=== PATIENT | male | born 1955 | race Caucasian/White ===

== ENCOUNTER → 2017-01-27 13:41 | Outpatient (CLI) | payer MEDICARE, OTHER ==
[2015-09-29 06:58] VITALS: BMI 27.2
[~2017-01-27 13:41] MED LIST: ACIPHEX20 MG PO; ANASTROZOLE1 MG PO; ASPIRIN EC81 M1 PO; BUSPAR 15 MG TA15 MG PO; HYDROCODONE-APA1 TAB PO; KLONOPIN1 MG PO; LIPITOR40 MG PO; MIDODRINE HCL5 MG PO; MORPHINE IMMEDI30 M1 PO; MORPHINE SULFAT60 M5 PO; PAXIL20 MG PO; PERCOCET 10/3251 TA1 PO; REMERON45 MG PO; SYNTHROID25 MCG PO; TESTOSTERON200 MG/ML IM; VIBRYD PO; ZANAFLEX6 MG PO; ZETIA10 MG PO
== END | disposition home or self-care (01) ==
LOC: D.CT 13:41
DX: R10.9 Unspecified abdominal pain (principal)

== ENCOUNTER → 2017-02-08 07:36 | Outpatient (CLI) | payer MEDICARE, OTHER ==
[2015-09-29 06:58] VITALS: BMI 27.2
== END | disposition home or self-care (01) ==
LOC: D.NM 02-07 09:00
DX: R10.9 Unspecified abdominal pain (principal); K82.9 Disease of gallbladder, unspecified

== ENCOUNTER 2017-03-04 06:35 | Day surgery (SDC) | payer MEDICARE, OTHER ==
[2017-03-03 14:33] LABS: BASOPHILS 0.5 % (0.0-2.0); EOSINOPHILS 2.7 % (0-7); HEMATOCRIT 39.6 % (42.0-54.0); HEMOGLOBIN 13.4 g/dL (13.5-17.5); IMMATURE GRANULOCYTES 0.2 % (0-5); MCH 31.1 pg (26.0-34.0); MCHC 33.8 g/dL (31.0-37.0); MCV 91.9 fL (80.0-100.0); MEAN PLATELET VOLUME 10.1 fL (7.4-10.4); MONOCYTES 9.2 % (2-11); NEUTROPHILS 45.4 % (40-80); PLATELET COUNT 299 10x3/uL (130-400); RBC 4.31 10x6/uL (4.20-6.10); RDW 12.4 % (11.5-14.5); WBC 6.2 10x3/uL (4.8-10.8)
[2017-03-03 14:41] LABS: CALC OSMOLALITY 286 mosm/kg (275-300); CALCIUM 8.8 mg/dL (8.5-10.1); CARBON DIOXIDE 31.3 mmol/L (21.0-32.0); CHLORIDE - SERUM 105 mmol/L (98-107); GLUCOSE 120 mg/dL (74-106); POTASSIUM - SERUM 3.5 mmol/L (3.5-5.1); SODIUM 143 mmol/L (136-145); UREA NITROGEN 14 mg/dL (7-18); eGFR NON AFRICAN AMERICAN 81 mL/min (90-120)
[~2017-03-04] VITALS: Ht 182.9 cm; Wt 101.6 kg
--- NOTE | ~2017-03-04 | OP ---
PATIENT NAME: AUDIE CORTÉS MEDICAL RECORD: [id number] :57 LOCATION:D.OPS ADMISSION DATE: SURGEON: USAMA ORR MD DATE OF OPERATION: 03/04/2017 PREOPERATIVE DIAGNOSES: 1. Gallstones. 2. Chronic back pain. 3. Coronary artery disease. POSTOPERATIVE DIAGNOSES: 1. Gallstones. 2. Chronic back pain. 3. Coronary artery disease. PROCEDURE: Laparoscopic cholecystectomy. SURGEON: Usama Orr MD REPORT OF PROCEDURE: The patient's abdomen was prepped and draped in sterile fashion. A cutdown was made on the superior aspect of the umbilicus, 0 Vicryls were placed in the fascia bilaterally and the fascia was incised with 15-blade. I then bluntly entered the peritoneal cavity and placed a 12-mm Kristine port. Under direct visualization, a 5 mm trocar was placed in the epigastrium and 2 more 5-mm trocars were placed in the right subcostal region. The gallbladder was elevated. There was very distended and swollen, but there were no signs of any acute inflammation. We actually penetrated the gallbladder lumen to suck out some of the bile to facilitate grasping. The cystic artery and cystic duct were then dissected free and these were clipped proximally and distally and ligated in standard fashion. The gallbladder was taken off the liver bed using electrocautery and placed in the right upper quadrant. Any bleeding from the liver bed was then treated with electrocautery. We irrigated out the right upper quadrant and assured there was no sign of any bleeding or bile leakage. At this point, the ports and insufflation were then removed and the gallbladder was taken out through the umbilicus. The umbilical fascia was closed with interrupted 0 Vicryls times 3. The wounds were irrigated out with normal saline and infused with 10 mL of 0.25% Marcaine with epinephrine. The skin incisions were all closed with subcutaneous 5-0 Monocryl and dressed appropriately. COMPLICATIONS: None. CONDITION: Stable. ANESTHESIA: General endotracheal and local. BLOOD LOSS: Minimal. TRANSINT:[id number] Voice Confirmation ID: [id number] DOCUMENT ID: [id number] OPERATIVE REPORT [id number] AUDIE CORTÉS USAMA ORR MD CC: JOE ROSARIO MD [id number] DICTATION DATE: 03/04/17 1125 DISPENSARY CLERK: 03/04/17 1746 [facility] 03/04/17 [place] [id number] [place] [id number]
[~2017-03-04 06:35] MED LIST changes: -PERCOCET 10/3251 TA1 PO
[2017-03-04 07:29] VITALS: BP 101/67; Ht 182.9 cm; Wt 101.6 kg
--- NOTE | 2017-03-04 11:07 | NUR ---
REPORT RECEIVED FROM PADMINI LEONARD RN FOR LUNCH RELIEF
[2017-03-04] MEDS ORDERED: PERCOCET 10/3251 TA1 PO (11:20)
--- NOTE | 2017-03-04 11:50 | NUR ---
PATIENT SLEEPING WITH VSS LOOKS COMFORTABLE
--- NOTE | 2017-03-04 14:56 | NUR ---
1400--PT VOIDS WITHOUT DIFFICULTY, IV DC'D. FRANCISCO CROWDER 1410--DISCHARGE INSTRUCTIONS GIVEN, PT VERBALIZES UNDERSTANDING. PT OFF UNIT VIA WC. FRANCISCO CROWDER
== END 2017-03-04 14:10 | disposition home or self-care (01) ==
LOC: D.OPS 06:35 → D.PAN 08:30 → D.OPS 13:00 → D.PAN 13:00 → D.OPS 14:10
PROVIDERS: Surgery
DX: K80.80 Other cholelithiasis without obstruction (principal); I25.10 Atherosclerotic heart disease of native coronary artery without angina pectoris; G89.29 Other chronic pain; M54.9 Dorsalgia, unspecified; E03.9 Hypothyroidism, unspecified; Z95.1 Presence of aortocoronary bypass graft

== ENCOUNTER → 2018-02-14 10:59 | Outpatient (CLI) | payer MEDICARE, OTHER ==
[2017-03-04 07:29] VITALS: BMI 30.4
[~2018-02-14 10:59] MED LIST changes: +PERCOCET 10/3251 TA1 PO
== END | disposition home or self-care (01) ==
LOC: D.MRI 10:59
DX: R51 Headache (principal)

== ENCOUNTER → 2021-04-16 13:45 | Outpatient (CLI) | payer MEDICARE, BC ==
[2017-03-04 07:29] VITALS: BMI 30.4
== END | disposition home or self-care (01) ==
LOC: D.MRI 13:45
PROVIDERS: ATTEND Nurse Practitioner Family
DX: M75.101 Unspecified rotator cuff tear or rupture of right shoulder, not specified as traumatic (principal); M75.102 Unspecified rotator cuff tear or rupture of left shoulder, not specified as traumatic